=== PATIENT | female | born 1945 | race Caucasian/White ===

== ENCOUNTER 2018-06-01 16:47 | Inpatient (IN) | payer MEDICARE, OTHER ==
[~2018-06-01] VITALS: Ht 165.1 cm; Wt 68.9 kg
--- NOTE | 2018-06-01 17:40 | NUR ---
PINKY CRISIS PROFESSOR OF GEOGRAPHY STATES WILL BE HERE ETA 1 HR
--- NOTE | 2018-06-01 17:51 | NUR ---
pt came in for psych eval, alert, follows commands, v/s stable, no pain.
[2018-06-01 18:01] LABS: BASOPHILS # (AUTO) 0.1 /CMM (0.0-0.2); BASOPHILS % (AUTO) 0.7 % (0.0-2.0); EOSINOPHILS % (AUTO) 1.5 % (0.0-6.0); HEMATOCRIT 34 % (33-45); HEMOGLOBIN 11.1 g/dL (11.5-14.8); LYMPHOCYTES # (AUTO) 2.1 /CMM (0.8-4.8); LYMPHOCYTES % (AUTO) 28.1 % (20.0-44.0); MEAN CORPUSCULAR HGB CONC 33 g/dl (31.0-36.0); MEAN CORPUSCULAR VOLUME 93 fL (82-100); MONOCYTES # (AUTO) 0.7 /CMM (0.1-1.30); MONOCYTES % (AUTO) 9.8 % (2.0-12.0); NEUTROPHILS # (AUTO) 4.5 /CMM (1.8-8.9); NEUTROPHILS % (AUTO) 59.9 % (43.0-81.0); PLATELET COUNT (AUTO) 212 /CMM (150-450); RED BLOOD CELL COUNT(AUTO) 3.65 MIL/uL (4.0-5.2); WHITE BLOOD COUNT (AUTO) 7.5 K/uL (4.3-11.0)
[2018-06-01 18:06] LABS: APPEARANCE,URINE Clear (CLEAR); BILIRUBIN,URINE Negative (NEGATIVE); BLOOD, URINE Negative Ery/uL (NEGATIVE); COLOR,URINE Yellow (YELLOW); KETONES,URINE Negative (NEGATIVE); LEUKOCYTE ESTERASE ,URINE Small (NEGATIVE); NITRITE, URINE Negative (NEGATIVE); PROTEIN,URINE Negative (NEGATIVE); UGLUCOSE Negative (NEGATIVE); UROBILINOGEN,URINE 0.2 EU/dL (0.2)
[2018-06-01 18:13] LABS: ACETAMINOPHEN 2 ug/ml (10-30); ALANINE AMINOTRANSFERASE 11 U/L (12-78); ALBUMIN 2.9 g/dL (3.4-5.0); ASPARTATE AMINOTRANSFERASE 4 U/L (15-37); BILIRUBIN,TOTAL 0.1 mg/dL (0.2-1.0); CALCIUM, SERUM 8.2 mg/dL (8.5-10.1); CARBON DIOXIDE 24 mmol/L (21-32); CHLORIDE 106 mmol/L (98-107); CREATININE 1.2 mg/dL (0.6-1.3); GLUCOSE 149 mg/dL (74-106); POTASSIUM 4.9 mmol/L (3.5-5.1); SODIUM SERUM 140 mmol/L (136-145); TOTAL PROTEIN, SERUM 6.1 g/dL (6.4-8.2); UREA NITROGEN, BLOOD 26 mg/dL (7-18)
[2018-06-01 18:14] LABS: ALCOHOL, BLOOD < 3 mg/dL (0-0); SALICYLATE 1.6 mg/dL (2.8-20.0)
[2018-06-01 18:23] LABS: ALKALINE PHOSPHATASE 76 U/L (46-116)
[2018-06-01 18:23] LABS: BACTERIA,URINE 1+ /HPF (None Seen); RBC,URINE NONE SEEN /HPF (0-2); SQUAMOUS EPITHELIAL CELL,UR Few /HPF (None Seen)
--- NOTE | 2018-06-01 18:26 | NUR ---
PT ADMIT TO ROOM 219-B GPS
[2018-06-01] MEDS ORDERED: CEPHALEXIN MONOHYDRATE 500 MG CAPSULE PO ONE ×2 (19:27→19:30)
--- NOTE | 2018-06-01 19:43 | NUR ---
REPORT GIVEN TO CLARISSA LITTLEJOHN FOR APPLE
--- NOTE | 2018-06-01 20:00 | NUR ---
GPS/RN NOTE: ADMITTED A 72 YEAR OLD FEMALE FROM [facility] BROUGHT IN BY MALE ER STAFF. PATIENT ADMITTED ON 5150 FOR GD. PATIENT WAS PLACED IN BED SHOWING NO S/S OF ANY PAIN AT THIS TIME. NO APPARENT DISTRESS NOTED. RESPIRATION EVEN, BREATHING PATTERN NON-LABORED, NOTED EQUAL RISE AND FALL OF THE CHEST. VITALS STABLE. UPON FACE TO FACE, PATIENT WAS A/O X1. PATIENT DOES NOT KNOW WHY SHE IS AT THE HOSPITAL. PER FACILITY, SHE WAS WANDERING OT OTHER RESIDENT'S ROOM, TAKING THINGS FROM THEM. SHE WORRIES PERSISTENTLY, ANXIOUS, RESTLESS, AND IMPULSIVE. WHEN ASKED WHY SHE IS NOW AT THE GPS UNIT, SHE STATED," I DON'T KNOW." SHE WAS ABLE TO IDENTIFY HER NAME, TIME AND THAT SHE IS AT THE HOSPITAL. CALM, COOPERATIVE, PROVIDES PERTINENT INFOS. ABLE TO AMBULATE, APPROPRIATE. BELONGINGS INVENTORIED AND CHECKED FOR CONTRABAND. NOTED DISCOLORATION ON BOTH LOWER LEGS AND ARMS. FRIEND SACHIN WAS NOTIFIED OF ADMISSION, FRIEND SAID THAT SHE HAS NO FAMILY BUT 2 SONS. PATIENT IS UNDER THE PSYCHIATRIC CARE OF DR. HEBERT AND UNDER THE MEDICAL CARE OF DR. QUINTANILLA. MRSA SCREEN DONE IN ER. BED LOCKED AND PLACED ON LOWEST POSITION TO MAINTAIN SAFETY. WILL CONTINUE TO MONITOR Q 15 MINS. TO MAINTAIN SAFETY. PATIENT REFUSED TO SIGN CONSENT.
[2018-06-01] MEDS ORDERED: MAG HYDROX/AL HYDROX/SIMETH 30 ML UDC PO PRN (20:30)
[2018-06-01] MEDS ORDERED: MAGNESIUM HYDROXIDE 30 ML UDC PO PRN (20:30)
[2018-06-01] MEDS ORDERED: LORAZEPAM 0.5 MG TABLET PO PRN (20:30)
[2018-06-01] MEDS ORDERED: INSU100V7 SQ (20:42)
[2018-06-01] MEDS ORDERED: FURO-145 PO (20:42)
[2018-06-01] MEDS ORDERED: ATOR20TA PO (20:42)
[2018-06-01] MEDS ORDERED: NIFE30TA89 PO (20:42)
[2018-06-01] MEDS ORDERED: LEVO125T8 PO (20:42)
[2018-06-01] MEDS ORDERED: LATA2.5D7 EACHEYE (20:42)
[2018-06-01] MEDS ORDERED: HYDR-4354 PO (20:42)
[2018-06-01] MEDS ORDERED: OMEP20CA10 PO (20:42)
[2018-06-01] MEDS ORDERED: CLOP75TA15 PO (20:42)
[2018-06-01] MEDS ORDERED: METF-442 PO (20:42)
[2018-06-01] MEDS ORDERED: BUDE10.22 IH (20:42)
[2018-06-01] MEDS ORDERED: SENN-18 PO (20:42)
[2018-06-01] MEDS ORDERED: INSULIN REGULAR, HUMAN 100 UNIT/ML 3 ML VIAL SQ PRN (21:00)
[2018-06-01] MEDS ORDERED: DEXTROSE 50%-WATER 50 ML DISP.SYRIN IV PRN (21:00)
[2018-06-01] MEDS: TEMAZEPAM 7.5 MG CAPSULE PO PRN (21:54)
[2018-06-01] MEDS: BLOOD SUGAR DIAGNOSTIC 1 EACH STRIP IN SCH (22:12)
--- NOTE | 2018-06-01 22:13 | NUR ---
ACCUCHECK 127 MG/DL, NO INSULIN SLIDING SCALE DUE AT THIS TIME. HS SNACKS GIVEN.
[2018-06-02] MEDS: ACETAMINOPHEN 325 MG TABLET PO PRN (06:52)
--- NOTE | 2018-06-02 06:53 | NUR ---
c/o headache, tylenol 650 mg tab po given.
--- NOTE | 2018-06-02 06:57 | NUR ---
PAGED DR. QUINTANILLA, RE: MED RECON
[2018-06-02] MEDS: BLOOD SUGAR DIAGNOSTIC 1 EACH STRIP IN SCH ×4 (07:25→22:03)
[2018-06-02 08:00] VITALS: BP 150/99
--- NOTE | 2018-06-02 08:45 | NUR ---
GPS RN NOTE: NOTIFIED REGARDING THE LABS AND SHELBY EVANS TO RECONCILE MEDICATION. WILL CONTINUE TO MONITOR
[2018-06-02] MEDS ORDERED: MELA3TAB PO (08:48)
[2018-06-02] MEDS ORDERED: NA P133E RC (08:48)
[2018-06-02] MEDS ORDERED: MAGN400O6 PO (08:48)
[2018-06-02] MEDS ORDERED: DIVA125T2 PO (08:48)
[2018-06-02] MEDS ORDERED: SERT50TA PO (08:48)
[2018-06-02] MEDS ORDERED: BISA10SU8 RC (08:48)
[2018-06-02] MEDS ORDERED: ACET-868 PO (08:48)
[2018-06-02] MEDS ORDERED: POLY17PO4 PO (08:48)
[2018-06-02 09:27] LABS: BASOPHILS % (AUTO) 0.5 % (0.0-2.0); EOSINOPHILS % (AUTO) 1.4 % (0.0-6.0); HEMATOCRIT 34 % (33-45); HEMOGLOBIN 11.3 g/dL (11.5-14.8); LYMPHOCYTES # (AUTO) 1.3 /CMM (0.8-4.8); LYMPHOCYTES % (AUTO) 18.1 % (20.0-44.0); MEAN CORPUSCULAR HGB CONC 33 g/dl (31.0-36.0); MEAN CORPUSCULAR VOLUME 91 fL (82-100); MONOCYTES # (AUTO) 0.7 /CMM (0.1-1.30); MONOCYTES % (AUTO) 9.4 % (2.0-12.0); NEUTROPHILS # (AUTO) 5.2 /CMM (1.8-8.9); NEUTROPHILS % (AUTO) 70.6 % (43.0-81.0); PLATELET COUNT (AUTO) 194 /CMM (150-450); RED BLOOD CELL COUNT(AUTO) 3.76 MIL/uL (4.0-5.2); WHITE BLOOD COUNT (AUTO) 7.4 K/uL (4.3-11.0)
[2018-06-02 09:36] LABS: ALANINE AMINOTRANSFERASE 12 U/L (12-78); ALBUMIN 2.8 g/dL (3.4-5.0); ALKALINE PHOSPHATASE 68 U/L (46-116); ASPARTATE AMINOTRANSFERASE 15 U/L (15-37); BILIRUBIN,TOTAL 0.3 mg/dL (0.2-1.0); CALCIUM, SERUM 8.4 mg/dL (8.5-10.1); CARBON DIOXIDE 27 mmol/L (21-32); CHLORIDE 104 mmol/L (98-107); CREATININE 0.9 mg/dL (0.6-1.3); GLUCOSE 320 mg/dL (74-106); POTASSIUM 4.6 mmol/L (3.5-5.1); SODIUM SERUM 140 mmol/L (136-145); UREA NITROGEN, BLOOD 22 mg/dL (7-18)
[2018-06-02 09:40] LABS: CHOLESTEROL 149 mg/dL (<200); HDL CHOLESTEROL 44 mg/dL (40-60); LDL 84 mg/dL (0-99); TRIGLYCERIDES 208 mg/dL (30-150)
[2018-06-02] MEDS: CEPHALEXIN MONOHYDRATE 500 MG CAPSULE PO SCH ×2 (11:14→20:37)
[2018-06-02] MEDS ORDERED: DEXTROSE 50%-WATER 50 ML DISP.SYRIN IV PRN (11:30)
[2018-06-02] MEDS ORDERED: Medication Not On Formulary EA (Budesonide/Formoterol Fumarate (Symbicort 80-4.5 Mcg Inh IH SCH (11:30)
[2018-06-02] MEDS: METFORMIN 500 MG TABLET PO SCH ×2 (11:47→16:44)
[2018-06-02] MEDS: NIFEdipine XL (30MG) 30 MG TAB PO SCH (11:48)
[2018-06-02] MEDS: PANTOPRAZOLE 40 MG TABLET.DR PO SCH (11:49)
[2018-06-02] MEDS: INSULIN REGULAR, HUMAN 100 UNIT/ML 3 ML VIAL SQ PRN (11:53)
--- NOTE | 2018-06-02 14:03 | NUR ---
INITIAL DISCHARGE NOTE: Patient currently resides at a SNF called [facility] [id number], [place] [address] . Pt is requesting to return to her facility. Sw will follow up with MD, patient and pts friend Elina Alan ([phone]) to discuss most appropriate discharge plan. Sw will form a safe an proper discharge.
[2018-06-02 16:20] VITALS: BP 158/62
[2018-06-02] MEDS: SENNOSIDES 8.6 MG TABLET PO SCH ×2 (16:44→16:52)
[2018-06-02] MEDS ORDERED: LATANOPROST EYE DROP 0.005% 2.5 ML BOTTLE EACHEYE SCH (18:00)
[2018-06-02 20:00] VITALS: BP 146/72
[2018-06-02] MEDS: QUETIAPINE FUMARATE 25 MG TABLET PO SCH (20:27)
[2018-06-02] MEDS: TEMAZEPAM 7.5 MG CAPSULE PO PRN (20:38)
[2018-06-02] MEDS: LATANOPROST EYE DROP 0.005% 2.5 ML BOTTLE EACHEYE SCH (21:42)
[2018-06-02] MEDS: ATORVASTATIN 10 MG TABLET PO SCH (21:57)
--- NOTE | 2018-06-02 22:13 | NUR ---
ACCUCHECK 187 MG/DL, REFUSED 3 UNITS OF REG. INSULIN PER SS. PATIENT STATED," MY SUGAR IS NOT TOO HIGH, I DON'T NEED THAT NEEDLE."
[2018-06-03 08:00] VITALS: BP 176/86
[2018-06-03] MEDS: BLOOD SUGAR DIAGNOSTIC 1 EACH STRIP IN SCH ×4 (08:20→21:21)
[2018-06-03] MEDS: DIVALPROEX SODIUM 125 MG CAP.SPRINK PO SCH ×3 (08:21→16:44)
[2018-06-03] MEDS: LEVOTHYROXINE SODIUM 125 MCG TABLET PO SCH (08:21)
[2018-06-03] MEDS: CLOPIDOGREL BISULFATE 75 MG TABLET PO SCH (08:21)
[2018-06-03] MEDS: CEPHALEXIN MONOHYDRATE 500 MG CAPSULE PO SCH ×2 (08:21→21:20)
[2018-06-03] MEDS: PANTOPRAZOLE 40 MG TABLET.DR PO SCH (08:21)
[2018-06-03] MEDS: METFORMIN 500 MG TABLET PO SCH ×2 (08:21→16:43)
[2018-06-03] MEDS: FUROSEMIDE 20 MG TABLET PO SCH (08:21)
[2018-06-03] MEDS: SENNOSIDES 8.6 MG TABLET PO SCH ×2 (08:21→16:44)
[2018-06-03] MEDS: NIFEdipine XL (30MG) 30 MG TAB PO SCH (08:22)
[2018-06-03] MEDS: FLUTICASONE/VILANTEROL 1 EACH BLST.W.DEV IH SCH (08:29)
[2018-06-03 16:00] VITALS: BP 151/54
[2018-06-03 20:00] VITALS: BP 133/70
[2018-06-03] MEDS: LATANOPROST EYE DROP 0.005% 2.5 ML BOTTLE EACHEYE SCH (21:20)
[2018-06-03] MEDS: QUETIAPINE FUMARATE 25 MG TABLET PO SCH (21:20)
[2018-06-03] MEDS: ATORVASTATIN 10 MG TABLET PO SCH (21:21)
--- NOTE | 2018-06-03 23:09 | NUR ---
Zoe chen, 144 mg/dl, refused insulin sliding scale, stated, " I don't need that."
[2018-06-04 08:00] VITALS: BP 109/65
[2018-06-04] MEDS: BLOOD SUGAR DIAGNOSTIC 1 EACH STRIP IN SCH ×4 (08:29→21:05)
[2018-06-04] MEDS: LEVOTHYROXINE SODIUM 125 MCG TABLET PO SCH (08:30)
[2018-06-04] MEDS: DIVALPROEX SODIUM 125 MG CAP.SPRINK PO SCH ×3 (08:30→16:29)
[2018-06-04] MEDS: NIFEdipine XL (30MG) 30 MG TAB PO SCH (08:30)
[2018-06-04] MEDS: CLOPIDOGREL BISULFATE 75 MG TABLET PO SCH (08:30)
[2018-06-04] MEDS: FUROSEMIDE 20 MG TABLET PO SCH (08:30)
[2018-06-04] MEDS: SENNOSIDES 8.6 MG TABLET PO SCH ×2 (08:31→16:29)
[2018-06-04] MEDS: CEPHALEXIN MONOHYDRATE 500 MG CAPSULE PO SCH ×2 (08:31→20:55)
[2018-06-04] MEDS: METFORMIN 500 MG TABLET PO SCH ×2 (08:31→16:29)
[2018-06-04] MEDS: PANTOPRAZOLE 40 MG TABLET.DR PO SCH (08:31)
[2018-06-04] MEDS: FLUTICASONE/VILANTEROL 1 EACH BLST.W.DEV IH SCH (08:32)
[2018-06-04 13:23] LABS: BASOPHILS # (AUTO) 0.1 /CMM (0.0-0.2); BASOPHILS % (AUTO) 0.7 % (0.0-2.0); EOSINOPHILS % (AUTO) 0.9 % (0.0-6.0); HEMATOCRIT 36 % (33-45); LYMPHOCYTES % (AUTO) 23.9 % (20.0-44.0); MEAN CORPUSCULAR HGB CONC 34 g/dl (31.0-36.0); MEAN CORPUSCULAR VOLUME 91 fL (82-100); MONOCYTES # (AUTO) 0.9 /CMM (0.1-1.30); MONOCYTES % (AUTO) 10.5 % (2.0-12.0); NEUTROPHILS # (AUTO) 5.5 /CMM (1.8-8.9); PLATELET COUNT (AUTO) 227 /CMM (150-450); RED BLOOD CELL COUNT(AUTO) 3.92 MIL/uL (4.0-5.2); WHITE BLOOD COUNT (AUTO) 8.6 K/uL (4.3-11.0)
[2018-06-04 13:34] LABS: ALANINE AMINOTRANSFERASE 12 U/L (12-78); ALBUMIN 3.2 g/dL (3.4-5.0); ALKALINE PHOSPHATASE 70 U/L (46-116); ASPARTATE AMINOTRANSFERASE 8 U/L (15-37); BILIRUBIN,TOTAL 0.3 mg/dL (0.2-1.0); CALCIUM, SERUM 8.5 mg/dL (8.5-10.1); CARBON DIOXIDE 24 mmol/L (21-32); CHLORIDE 102 mmol/L (98-107); CREATININE 1.3 mg/dL (0.6-1.3); GLUCOSE 228 mg/dL (74-106); POTASSIUM 4.4 mmol/L (3.5-5.1); SODIUM SERUM 136 mmol/L (136-145); TOTAL PROTEIN, SERUM 6.5 g/dL (6.4-8.2); UREA NITROGEN, BLOOD 23 mg/dL (7-18)
[2018-06-04 16:00] VITALS: BP 113/68
[2018-06-04] MEDS: INSULIN REGULAR, HUMAN 100 UNIT/ML 3 ML VIAL SQ PRN (17:50)
[2018-06-04 20:07] VITALS: BP 161/93
[2018-06-04] MEDS: QUETIAPINE FUMARATE 25 MG TABLET PO SCH (20:54)
[2018-06-04] MEDS: LATANOPROST EYE DROP 0.005% 2.5 ML BOTTLE EACHEYE SCH (20:56)
[2018-06-04] MEDS: ATORVASTATIN 10 MG TABLET PO SCH (21:04)
[2018-06-04] MEDS: TEMAZEPAM 7.5 MG CAPSULE PO PRN (22:33)
[2018-06-05] MEDS: ACETAMINOPHEN 325 MG TABLET PO PRN (07:35)
[2018-06-05] MEDS: PANTOPRAZOLE 40 MG TABLET.DR PO SCH (07:35)
[2018-06-05] MEDS: LEVOTHYROXINE SODIUM 125 MCG TABLET PO SCH (07:35)
[2018-06-05] MEDS: INSULIN REGULAR, HUMAN 100 UNIT/ML 3 ML VIAL SQ PRN ×3 (07:49→17:16)
[2018-06-05] MEDS: BLOOD SUGAR DIAGNOSTIC 1 EACH STRIP IN SCH ×4 (07:49→22:18)
[2018-06-05 08:00] VITALS: BP 154/97
[2018-06-05] MEDS: NIFEdipine XL (30MG) 30 MG TAB PO SCH (08:46)
[2018-06-05] MEDS: CLOPIDOGREL BISULFATE 75 MG TABLET PO SCH (08:46)
[2018-06-05] MEDS: DIVALPROEX SODIUM 125 MG CAP.SPRINK PO SCH ×3 (08:46→17:02)
[2018-06-05] MEDS: FUROSEMIDE 20 MG TABLET PO SCH (08:46)
[2018-06-05] MEDS: METFORMIN 500 MG TABLET PO SCH ×2 (08:46→17:03)
[2018-06-05] MEDS: SENNOSIDES 8.6 MG TABLET PO SCH ×2 (08:47→17:00)
[2018-06-05] MEDS: CEPHALEXIN MONOHYDRATE 500 MG CAPSULE PO SCH (08:55)
[2018-06-05] MEDS: FLUTICASONE/VILANTEROL 1 EACH BLST.W.DEV IH SCH (08:55)
--- NOTE | 2018-06-05 09:02 | NUR ---
GPS RN NOTES PATIENT REPORTS OF HAVING LOOSE BOWEL MOVEMENT. DENIES DIARRHEA. VERBALIZES, "ITS EXTRA SOFT". STOOL SOFTENER HELD. WILL CONTINUE TO MONITOR
--- NOTE | 2018-06-05 10:32 | NUR ---
Discharge Planning: Social work called [facility] [address], [place] [address] however no answer, social work left requesting return call. lot worker attempted to contact pts friend Elina Waqas ([phone]) no picker / packer, oncology social worker left .
[2018-06-05] MEDS: QUETIAPINE FUMARATE 25 MG TABLET PO SCH ×2 (12:39→22:17)
--- NOTE | 2018-06-05 13:33 | NUR ---
Discharge Planning: Social work called [facility] [place] [address], [place] [address] spoke with Unit two Danni who verified pt is approved to return to facility.
--- NOTE | 2018-06-05 15:10 | NUR ---
GPS RN NOTES CALLED AND SPOKE WITH LAN TANNER AND GAVE REPORT. PATIENT WILL BE TRANSFERRED TO [facility]
[2018-06-05 16:00] VITALS: BP 124/57
--- NOTE | 2018-06-05 16:00 | NUR ---
GPS OVERFLOW RN NOTES [facility] BELONGINGS INVENTORIED BY JENNIFER. PT WHEELS INDEPENDENTLY WITH WHEELCHAIR. NO IV SITE PER PROTOCOL. PT IS ABLE TO MAKE NEEDS KNOWN, A/OX2. EASILY RE-DIRECTABLE.A/OX2.SOMETIMES FORGETFUL. PT ASKING TO BE RELEASED TO GO HOME. WILL CONT TO MONITOR.
--- NOTE | 2018-06-05 16:00 | NUR ---
GPS RN NOTES PATIENT TRANSFERRED TO [facility] VIA WHEELCHAIR. PATIENT AWAKE, ALERT AND ORIENTED. NO ACUTE DISTRESS. DENIES ANY PAIN OR DISCOMFORT. NO CHANGES IN LOC NOTED. BELONGINGS BROUGHT TO NEW ROOM. SHARON REMAINS IN NURSING SNOW REMOVING SUPERVISOR SAFE. PATIENT MADE AWARE AND VERBALIZED UNDERSTANDING. RECEIVING RN LAN AT BEDSIDE. SITTER AT BEDSIDE. NO NEW SKIN BREAKDOWN ON TRANSFER.
--- NOTE | 2018-06-05 19:10 | NUR ---
rn gps overflow note PT IS AOX2-3, SPEECH CLEAR, ABLE TO MAKE NEEDS KNOWN, DENIES PAIN, ON ROOM AIR, NO S/SX OF CARDIAC OR RESPIRATORY DISTRESS, SKIN KEPT CLEAN AND DRY, SAFETY MAINTAINED AT ALL TIMES, BED IN LOW LOCKED POSITION, CALL LIGHT WITHIN REACH, WILL CONTINUE TO MONITOR, PT READY TO TRANSFER TO ROOM 206-2.
--- NOTE | 2018-06-05 19:12 | NUR ---
GPS RN NOTES REPORTED TO PM NURSE FOR APPLE. PT IS IN BED, NO S/SX OF DISTRESS NOTED. PT COMPLIANT WITH PROTOCOL.
--- NOTE | 2018-06-05 19:55 | NUR ---
RN GPS OVERFLOW NOTE PATIENT TRANSFERRED TO ROOM 206-2, REPORT GIVEN TO RN, PT IS IN NO ACUTE DISTRESS, ALL BELONGINGS BROUGHT WITH HER.
[2018-06-05 20:00] VITALS: BP 145/91
--- NOTE | 2018-06-05 20:00 | NUR ---
RN OPENING NOTES RECEIVED BEDSIDE REPORT FROM DAYSHIFT RN. FOUND Pt AWAKE, RESPIRATIONS EVEN AND UNLABORED. NO S/S OF ACUTE DISTRESS OR SOB NOTED. Pt IS A/OX2, VERBAL, ABLE TO MAKE NEEDS KNOWN, BUT IS FORGETFUL. Pt IS A GPS OVERFLOW, SO NO IV ACCESS AVAILABLE PER GPS PROTOCOL. Pt IS ON A 5250 HOLD WHICH EXP ON 06/17/18. SITTER ORDERED FOR Pt. SAFETY MEASURES IN PLACE. BED LOW, LOCKED, HOB ELEVATED, SIDE RAILS UP, & BEDSIDE TABLE WITHIN REACH. BED ALARM ON. WILL CONTINUE TO MONITOR Pt's CONDITION AND SAFETY THROUGHOUT THE NIGHT.
--- NOTE | 2018-06-05 22:00 | NUR ---
RN NOTES HS ACCUCHECK 105. NO INSULIN COVERAGE NEEDED AT THIS TIME.
[2018-06-05] MEDS: LATANOPROST EYE DROP 0.005% 2.5 ML BOTTLE EACHEYE SCH (22:17)
[2018-06-05] MEDS: ATORVASTATIN 10 MG TABLET PO SCH (22:18)
--- NOTE | 2018-06-06 06:30 | NUR ---
RN NOTES AC ACCUCHECK BG 154. ADMINISTERED 2UN OF INSULIN PER SLIDING SCALE. PROVIDED OJ AT BEDSIDE.
[2018-06-06] MEDS: BLOOD SUGAR DIAGNOSTIC 1 EACH STRIP IN SCH ×4 (06:35→20:58)
[2018-06-06] MEDS: INSULIN REGULAR, HUMAN 100 UNIT/ML 3 ML VIAL SQ PRN ×2 (06:44→16:55)
--- NOTE | 2018-06-06 06:45 | NUR ---
RN CLOSING NOTES NO SIGNIFICANT CHANGES IN Pt's CONDITION. Pt REMAINS STABLE AT THIS TIME. NO S/S OF ACUTE DISTRESS OR SOB NOTED DURING THE NIGHT. ALL NEEDS MET AND ATTENDED TO. Pt IS RESTING COMFORTABLY IN BED. RESPIRATIONS EVEN AND UNLABORED. SAFETY MEASURES IN PLACE. WILL ENDORSE TO DAYSHIFT RN FOR Pt's APPLE.
[2018-06-06 08:00] VITALS: BP 143/66
--- NOTE | 2018-06-06 08:03 | NUR ---
RN OPENING NOTES PT RESTING IN BED. 1:1 SITTER AT BEDSIDE. NO APPARENT S/S OF PAIN, DISTRESS OR SOB AT THIS TIME. PT ON 5250 HOLD. NO IV ACCESS PER GPS. SAFETY PRECAUTIONS IN PLACE, BED IN LOWEST LOCKED POSITION, X2 SIDE RAILS UP AND CALL LIGHT WITHIN REACH. WILL CONTINUE TO MONITOR.
[2018-06-06] MEDS: FLUTICASONE/VILANTEROL 1 EACH BLST.W.DEV IH SCH (08:45)
[2018-06-06] MEDS: CLOPIDOGREL BISULFATE 75 MG TABLET PO SCH (08:46)
[2018-06-06] MEDS: FUROSEMIDE 20 MG TABLET PO SCH (08:46)
[2018-06-06] MEDS: NIFEdipine XL (30MG) 30 MG TAB PO SCH (08:46)
[2018-06-06] MEDS: DIVALPROEX SODIUM 125 MG CAP.SPRINK PO SCH ×4 (08:46→21:00)
[2018-06-06] MEDS: PANTOPRAZOLE 40 MG TABLET.DR PO SCH (08:46)
[2018-06-06] MEDS: QUETIAPINE FUMARATE 25 MG TABLET PO SCH ×2 (08:47→19:56)
[2018-06-06] MEDS: METFORMIN 500 MG TABLET PO SCH ×2 (08:47→16:52)
[2018-06-06] MEDS: SENNOSIDES 8.6 MG TABLET PO SCH ×2 (08:48→16:43)
[2018-06-06] MEDS ORDERED: QUETIAPINE FUMARATE 25 MG TABLET PO SCH (09:00)
--- NOTE | 2018-06-06 09:00 | NUR ---
RN NOTES INFORMED PHARMACY OF MISSING MEDICATIONS. PER PHARMACY, WILL RESTOCK. WILL CONTINUE TO FOLLOW UP.
--- NOTE | 2018-06-06 10:52 | NUR ---
RN NOTES SECOND PHONE CALL. INFORMED PHARMACY OF MISSING MEDICATIONS. PER PHARMACY, WILL RESTOCK. WILL CONTINUE TO FOLLOW UP.
--- NOTE | 2018-06-06 12:00 | NUR ---
RN NOTES INFORMED TSERING FAYE NP OF LOOSE STOOL. NO NEW ORDERS AT THIS TIME. CONTINUE TO HOLD SENNA.
--- NOTE | 2018-06-06 13:07 | NUR ---
HELD INSULIN AT THIS TIME. PATIENT ALREADY EATING AT TIME OF CHECKING BLOOD SUGAR. WILL RECHECK BEFORE DINNER.
[2018-06-06] MEDS: LEVOTHYROXINE SODIUM 125 MCG TABLET PO SCH (14:20)
--- NOTE | 2018-06-06 14:38 | NUR ---
RN NOTES ALL MEDICATIONS GIVEN THEY WERE MADE AVAILABLE FROM PHARMACY.
[2018-06-06] MEDS ORDERED: CEPHALEXIN MONOHYDRATE 500 MG CAPSULE PO SCH (18:00)
--- NOTE | 2018-06-06 18:42 | NUR ---
RN CLOSING NOTES PT RESTING IN BED. 1:1 SITTER AT BEDSIDE. NO APPARENT S/S OF PAIN, DISTRESS OR SOB DURING SHIFT. PT MED COMPLIANT. PT ON 5250 HOLD. NO IV ACCESS PER GPS. SAFETY PRECAUTIONS IN PLACE, BED IN LOWEST LOCKED POSITION, X2 SIDE RAILS UP AND CALL LIGHT WITHIN REACH. WILL ENDORSE TO SUBMARINE ADVISORY TEAM WATCH OFFICER NURSE FOR CONTINUITY OF CARE.
--- NOTE | 2018-06-06 19:45 | NUR ---
RECIVED PATIENT IN THE BED. ALERT AND ORIENTATED AT THIS TIME. SHE IS TALKATIVE AND STATES SHE WANTS A PILL TO GO TO SLEEP SHE IS TIRED. GOOD EYE CONTACT AT THIS TIME. REMINDED HER NOT TO GET OOB TO USE THE CALL LIGHT TO ALERT THE NURSE TO GET OOB
[2018-06-06] MEDS: LATANOPROST EYE DROP 0.005% 2.5 ML BOTTLE EACHEYE SCH (19:59)
[2018-06-06 20:32] VITALS: BP 146/72
[2018-06-06] MEDS: ATORVASTATIN 10 MG TABLET PO SCH (21:00)
--- NOTE | 2018-06-07 05:43 | NUR ---
SLEPT 8 HOURS THIS 12 HOUR SHIFT. CHANGING HER OWN POSITION THRU THE NIGHT. HER W/C REMAIN AT THE BEDSIDE. BED ALARM ON FOR SAFETY. CALL LIGHT WITHIN HER REACH.
[2018-06-07] MEDS: BLOOD SUGAR DIAGNOSTIC 1 EACH STRIP IN SCH ×4 (06:27→21:26)
[2018-06-07] MEDS: INSULIN REGULAR, HUMAN 100 UNIT/ML 3 ML VIAL SQ PRN ×3 (06:35→21:36)
[2018-06-07] MEDS: LEVOTHYROXINE SODIUM 125 MCG TABLET PO SCH (08:25)
[2018-06-07] MEDS: CLOPIDOGREL BISULFATE 75 MG TABLET PO SCH (08:25)
[2018-06-07] MEDS: DIVALPROEX SODIUM 125 MG CAP.SPRINK PO SCH ×4 (08:26→21:12)
[2018-06-07] MEDS: PANTOPRAZOLE 40 MG TABLET.DR PO SCH (08:26)
[2018-06-07] MEDS: QUETIAPINE FUMARATE 25 MG TABLET PO SCH ×2 (08:26→21:12)
[2018-06-07] MEDS: FUROSEMIDE 20 MG TABLET PO SCH (08:27)
[2018-06-07] MEDS: FLUTICASONE/VILANTEROL 1 EACH BLST.W.DEV IH SCH (08:27)
[2018-06-07] MEDS: METFORMIN 500 MG TABLET PO SCH ×2 (08:27→17:24)
[2018-06-07] MEDS: SENNOSIDES 8.6 MG TABLET PO SCH ×2 (08:27→17:00)
[2018-06-07] MEDS: NIFEdipine XL (30MG) 30 MG TAB PO SCH (08:27)
--- NOTE | 2018-06-07 15:10 | NUR ---
Olya from [facility] called the SW and inquired about when the pt would be discharged back to the SNF. SW stated that her discharge is set for tomorrow and she asked for notes to be faxed over and stated that she would arrange transportation.
--- NOTE | 2018-06-07 15:11 | NUR ---
CRISTO faxed updated notes to [facility] with attention to Olya to the fax number: [phone].
--- NOTE | 2018-06-07 19:10 | NUR ---
ALERT AND ORIENTATED X2. USING WHEELCHAIR ,REMINDED NOT TO GET OOB TO USE THE CALL LIGHT. VS ARE STABLE ON ROOM AIR. WILL ENDORSE TO NEXT SHIFT FOR APPLE.
--- NOTE | 2018-06-07 19:33 | NUR ---
GPS RN RECEIVE PT IN W/C A/O X 2, RESPIRATIONS EVEN AND UNLABORED, NO SOB NOTED, NO DISTRESS, SAFETY MEASURES IN PLACE. WILL CONTINUE TO MONITOR.
[2018-06-07 20:00] VITALS: BP 109/71
[2018-06-07] MEDS: ATORVASTATIN 10 MG TABLET PO SCH (21:12)
[2018-06-07] MEDS: TEMAZEPAM 7.5 MG CAPSULE PO PRN (21:13)
[2018-06-07] MEDS: LATANOPROST EYE DROP 0.005% 2.5 ML BOTTLE EACHEYE SCH (21:14)
[2018-06-08] MEDS: BLOOD SUGAR DIAGNOSTIC 1 EACH STRIP IN SCH ×3 (05:36→17:05)
[2018-06-08] MEDS: INSULIN REGULAR, HUMAN 100 UNIT/ML 3 ML VIAL SQ PRN ×2 (05:42→12:10)
--- NOTE | 2018-06-08 06:03 | NUR ---
GPS RN ASLEEP AND EASILY AWAKEN, PT REMAINS CALM, SLEPT WELL THROUGHOUT THE NIGHT 9 HOURS. NEEDS ATTENDED AND ANTICIPATED, KEPT CLEAN AND DRY AND COMFORTABLE, NO COMPLAIN OF PAIN, 1:1 SITTER AT BEDSIDE, SAFETY MEASURES IN PLACE, WILL CONTINUE TO MONITOR.
--- NOTE | 2018-06-08 07:20 | NUR ---
GPS OPENING NOTE THE PATIENT IS RECEIVED IN BED AND SLEEPING. RESPONSIVE TO VERBAL STIMULI. IN ROOM AIR. NO MANIFESTATION OF SOB OR DISTRESS NOTED. BED LOW AND LOCKED. SIDE RAILS UP X3. SITTER AT THE BEDSIDE. WILL CONTINUE TO MONITOR.
[2018-06-08 08:00] VITALS: BP 148/66
[2018-06-08] MEDS: PANTOPRAZOLE 40 MG TABLET.DR PO SCH (08:39)
[2018-06-08] MEDS: LEVOTHYROXINE SODIUM 125 MCG TABLET PO SCH (08:39)
[2018-06-08] MEDS: CLOPIDOGREL BISULFATE 75 MG TABLET PO SCH (08:39)
[2018-06-08] MEDS: METFORMIN 500 MG TABLET PO SCH ×2 (08:40→17:05)
[2018-06-08] MEDS: DIVALPROEX SODIUM 125 MG CAP.SPRINK PO SCH ×3 (08:40→17:04)
[2018-06-08] MEDS: NIFEdipine XL (30MG) 30 MG TAB PO SCH (08:40)
[2018-06-08] MEDS: FUROSEMIDE 20 MG TABLET PO SCH (08:40)
[2018-06-08] MEDS: QUETIAPINE FUMARATE 25 MG TABLET PO SCH (08:40)
[2018-06-08] MEDS: SENNOSIDES 8.6 MG TABLET PO SCH ×2 (08:44→16:16)
[2018-06-08] MEDS: FLUTICASONE/VILANTEROL 1 EACH BLST.W.DEV IH SCH (08:54)
--- NOTE | 2018-06-08 11:09 | NUR ---
CRISTO called pts friend Elina Alan ([phone]) and left a voicemail to inform her that the pt is being discharged back to [facility] today.
--- NOTE | 2018-06-08 11:11 | NUR ---
CRISTO called Olya from [facility] to follow up on the discharge plan. She stated that drivers will be arriving from the facility to pickle water pump operator the pt around 3-5pm. CRISTO then inquired about her follow up team and was provided with that information.
--- NOTE | 2018-06-08 13:12 | NUR ---
RN NOTE RECEIVED DISCHARGE ORDER FROM DR MARTÍNEZ. READ BACK, VERIFIED. NOTED AND CARRIED OUT.
[2018-06-08 16:00] VITALS: BP 118/76
[2018-06-08 16:05] VITALS: BP 118/76
--- NOTE | 2018-06-08 16:12 | NUR ---
Discharge Note: Pt was discharged to [facility] ([facility]) located at [address] [place] [address]; ([phone]). Two drivers from the facility came to pick up attendant the pt between 3-5PM. Pts friend Elina Alan ([phone]) has been informed of the discharge. Upon discharge, the pt appeared to be in a euthymic mood and presented with an anxious affect. Pt stated, I cannot wait to go back to my home. Pt denied both suicidal and homicidal ideation as well as auditory and visual hallucinations. Pt will be under the care of her psychiatrist, Dr. Marcus Lind located at [address] [place] [address]; ([phone]) and her flame cutting supervisor, Dr. Sarkis Krueger located at [address] [place] [id number]; ([phone]).
--- NOTE | 2018-06-08 18:30 | NUR ---
RN NOTE PATIENT IS GIVEN DISCHARGE INSTRUCTIONS AND SHE VERBALIZED UNDERSTANDING. REPORT GIVEN TO NURSE NATH. PATIENT IS PICKED UP AND LEFT THE HOSPITAL IN STABLE CONDITION.
== END 2018-06-08 18:31 | DRG 885 ==
LOC: ER 16:53 → GPS 19:32 → GPSOV1 06-05 15:56 → GPSOV2 06-05 18:43
PROVIDERS: ADMIT Psychiatry & Neurology Psychosomatic Medicine; ATTEND Nurse Practitioner Acute Care
DX: F29 Unspecified psychosis not due to a substance or known physiological condition (principal); E11.65 Type 2 diabetes mellitus with hyperglycemia; N39.0 Urinary tract infection, site not specified; E44.0 Moderate protein-calorie malnutrition; E78.1 Pure hyperglyceridemia; D63.8 Anemia in other chronic diseases classified elsewhere; Z68.25 Body mass index [BMI] 25.0-25.9, adult; J44.9 Chronic obstructive pulmonary disease, unspecified; M19.90 Unspecified osteoarthritis, unspecified site; I10 Essential (primary) hypertension; E03.9 Hypothyroidism, unspecified
CPT/HCPCS: 36415; 80048-TC; 80053-TC; 80061-TC; 80076-TC; 80164-TC; 80305; 81000-TC; 82962-TC; 85025-TC; 87081-TC; 87086-TC; 92611-TC; G0480; J1815